=== PATIENT | female | born 1950 | race Two or more races ===

== ENCOUNTER → 2017-06-19 | Day surgery (SDC) | payer OTHER ==
[~2017-06-19] MED LIST: APREPITANT 40 MG CAP ONE; BUPIVACAINE/EPINEPHRINE 0.5% PF 10 ML VIAL ONE; ENOX30P SQ; HYDR-3133 PO; HYDR12.56 PO; KETOROLAC TROMETHAMINE 30 MG/ML (IVP) VIAL IV PUSH ONE; MIDAZOLAM HCL 2 MG/2 ML VIAL ONE; OMEP20CA5 PO; ONDANSETRON HCL 4 MG/2 ML VIAL IV PUSH ONE; PROPOFOL 200 MG/20 ML AMP IV ONE; VICO7.5T PO; ZOCO10TA PO; ceFAZolin INJ 1,000 MG VIAL ONE
--- NOTE | 2017-06-19 21:43 | MP ---
cc: MIKE GUEVARA DATE OF SURGERY 06/19/17 PREOPERATIVE DIAGNOSIS Left knee medial and lateral meniscus tear. POSTOPERATIVE DIAGNOSES Left knee medial and lateral meniscus tear. PROCEDURE Left knee arthroscopic partial medial and lateral meniscectomy. SURGEON Dr. Simeon Guevara ANESTHESIA Less than 10 mL. TOURNIQUET TIME Zero minutes. JUSTIFICATION The patient is a 56-year old female who injured her left knee. She has had persistent symptoms of pain as related to her condition. Clinical exam as well as MRI confirmed the above-named findings. She was counseled as to risks, benefits and alternatives of the above-named proposed surgical procedure. She did wish to proceed with surgery. PROCEDURE IN DETAIL A written consent was obtained. The patient was identified by name, taken to the operating room and placed supine on operating table. General anesthesia was administered as well as 1 gram of IV Ancef. The left thigh carefully placed in well-padded leg veloz. The left lower extremity prepped and draped using isopropyl alcohol, Hibiclens solution and Chloraprep solution. After a time-out was performed, a standard medial and lateral parapatellar arthroscopic portal was established. 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 The medial compartment revealed a large complex tear at the posterior horn of the medial meniscus. An arthroscopic shaver was introduced into the medial compartment to perform partial medial meniscectomy. The meniscal rim was probed and noted to be stable. There was diffuse grade 2 and some grade 3 chondromalacia changes in the medial femoral condyle. The intercondylar notch revealed the anterior pattern puncher cruciate ligaments to be intact. The lateral compartment revealed an anterior horn tear lateral meniscus extending into the mid body. An arthroscopic shave was introduced into the lateral compartment to perform a partial lateral meniscectomy. The meniscal rim was again probed and noted to be stefan. There were areas of focal grade 2 chondromalacia changes lateral femoral condyle. At the conclusion of surgical procedure, 30 mL of 0.5% Marcaine with epinephrine was injected into the knee joint. The arthroscopic portal was closed with 3-0 Prolene suture. Sterile dressing applied. The patient tolerated procedure well with no intraoperative complications noted. MD MIRI Escobedo/ /9:42 AM 9:28 PM
== END | disposition home or self-care (01) ==
LOC: ESDC 07:18
PROVIDERS: ATTEND Orthopaedic Surgery Sports Medicine
DX: S83.232A Complex tear of medial meniscus, current injury, left knee, initial encounter (principal); S83.282A Other tear of lateral meniscus, current injury, left knee, initial encounter
CPT/HCPCS: 01400; 29880; J0690; J1885; J2250; J2405; J3010; J8501